=== PATIENT | male | born 1970 | race Caucasian/White ===

== ENCOUNTER 2019-11-26 06:48 | Day surgery (SDC) | payer OTHER, BC ==
[~2019-11-26] VITALS: Ht 172.7 cm; Wt 89.0 kg
[2019-11-26] MEDS ORDERED: LIDOCAINE 1%-EPI 1:100K, 20ML ONE (06:57)
[2019-11-26] MEDS ORDERED: NEOSPORIN OINT, 15GM ONE (06:57)
[2019-11-26] MEDS ORDERED: LACTATED RINGERS 1,000 ML IV SCH (07:24)
[2019-11-26 07:28] VITALS: BP 105/72
[2019-11-26] MEDS ORDERED: CHLORHEXIDINE 15 ML UDC MM ONE (07:30)
[2019-11-26] MEDS ORDERED: MULT-658 PO (07:50)
[2019-11-26] MEDS ORDERED: FENTANYL PF 100 MCG/2ML ONE ×2 (08:17→09:31)
[2019-11-26] MEDS ORDERED: LIDOCAINE-MPF 2% ,5ML ONE (08:17)
[2019-11-26] MEDS ORDERED: PROPOFOL 10 MG/ML, 20ML ONE (08:17)
[2019-11-26] MEDS ORDERED: CEFAZOLIN 1,000 MG ONE ×2 (08:36)
[2019-11-26] MEDS ORDERED: DEXAMETHASONE 4 MG/ML, 1ML ONE ×3 (08:36)
[2019-11-26] MEDS ORDERED: OXYMETAZOLINE NASAL SPRAY 0.05%,30ML NAS ONE (08:44)
[2019-11-26] MEDS ORDERED: ONDANSETRON 2MG/ML, 2ML IVPush PRN (09:00)
[2019-11-26] MEDS ORDERED: OXYcodone 5 MG/5 ML ORAL.SOL UDC PO PRN (09:00)
[2019-11-26] MEDS ORDERED: OXYcodone 5 MG/5 ML ORAL.SOL UDC ONE (09:32)
[2019-11-26] MEDS: FENTANYL PF 100 MCG/2ML IV PRN ×2 (09:35→09:50)
== END 2019-11-26 11:25 | disposition home or self-care (01) ==
LOC: OUT 06:48 → EDBD 07:30 → OUT 11:25
PROVIDERS: ATTEND Otolaryngology
DX: J34.2 Deviated nasal septum (principal); Z11.59 Encounter for screening for other viral diseases; J34.3 Hypertrophy of nasal turbinates; J45.909 Unspecified asthma, uncomplicated
CPT/HCPCS: 30140; 30520; 87635; 88304; 88311; J0690; J1100; J2704; J3010; J3490; J7120